=== PATIENT | female | born 1975 | race Caucasian/White ===

== ENCOUNTER 2021-08-11 09:46 | Observation (INO) ==
--- NOTE | 2021-08-11 10:08 | Emergency Department Note ---
History of Present Illness General Chief complaint: Dental/Oral Stated complaint: LEFTSIDE UPPER TOOTH PAIN Time Seen by Provider: 08/11/21 09:59 History of Present Illness Maximum Pain Intensity: 10 This is a 46-year-old female that presents to the emergency department via private vehicle with complaints of "left side upper tooth pain". The patient notes that she has been experiencing soreness to the left upper posterior dentition for some time now. She presented to her dentist on Sunday where she was seen and the patient notes that an attempt was made to remove the tooth. She notes that this was unsuccessful. Patient notes that the tooth fractured. She also notes that this injured the tooth posterior to this. She was started on clindamycin. She states that her dentist has attempted to establish follow- up with an oral surgeon however after several attempts has been unable to do so in a short period of time. It appears the soonest she can be seen is October 19. Patient was seen last night she notes at [place] emergency department. They did not have an oral surgeon on-call. She states that she was recommended to come here. She also reached out to her dentist and she notes that the dentist was in agreement to present here today as we do have an oral surgeon on-call. The patient rates her current discomfort as a 10/10. She has been compliant with the antibiotics, clindamycin. She notes vomiting secondary to the pain. She feels swelling starting out to the left cheek region just inferior to the left eye. Home Medications Medication Instructions Recorded Confirmed Type citalopram 40 mg tablet 40 mg PO QPM 06/11/19 06/11/19 History clonazepam 0.5 mg tablet 0.5 mg PO BID PRN 06/11/19 06/11/19 History dicyclomine 20 mg tablet 20 mg PO QID PRN 06/11/19 06/11/19 History famotidine 20 mg tablet 20 mg PO HS 06/11/19 06/11/19 History pantoprazole 40 mg tablet,delayed 40 mg PO QAM 06/11/19 06/11/19 History release prochlorperazine maleate 5 mg 5 mg PO Q6H PRN 06/11/19 06/11/19 History tablet promethazine 25 mg tablet 25 mg PO TID PRN 06/11/19 06/11/19 History Allergies Allergy/AdvReac Type Severity Reaction Status Date / Time Penicillins Allergy Severe THROAT Verified 06/11/19 22:12 EDEMA Sulfa (Sulfonamide Allergy Severe THROAT Verified 06/11/19 22:12 Antibiotics) EDEMA Past Med/Surg History Medical History (Updated 08/11/21 @ 13:26 by Petra Solorzano PA-C) Abscess, periapical Anxiety Depression GERD (gastroesophageal reflux disease) Nodule of parotid gland Surgical History H/O: hysterectomy Social History Smoking Status: Current every day smoker Tobacco Type: Cigarettes Feels Safe at Home: Yes Review of Systems A total of 10 systems reviewed and were otherwise negative Physical Exam Vital Signs Vital Signs - 24 hr 08/11/21 09:50 08/11/21 11:53 08/11/21 13:00 Temperature 36.4 C L Temperature Source Oral Pulse Rate 117 H Pulse Rate [Left Finger] 80 81 Pulse Rhythm Regular Pulse Rhythm [Left Finger] Regular Pulse Strength Normal Pulse Strength [Left Finger] Normal Respiratory Rate 18 16 16 Respiratory Effort / Characteristics Non-Labored Spontaneous Non-Labored Spontaneous Non-Labored Spontaneous Respiratory Depth Normal Normal Normal Respiratory Pattern Regular Blood Pressure 107/67 Blood Pressure [Right Arm] 121/77 Blood Pressure Mean 80 Blood Pressure Mean [Right Arm] 91 Blood Pressure Position Sitting Pulse Oximetry 96 99 98 Oxygen Delivery Method Room Air Room Air Room Air Sepsis Recent Fever Within 48 Hours No Sepsis New/Unexplained Change in Mental Status No Sepsis Action Taken by Nursing No Action Required VITAL SIGNS - Vital signs and nursing notes were reviewed. Tachycardic, otherwise stable. GENERAL - 46-year-old female appearing her stated age who is in no acute distre ss. Communicates well with provider and answers questions appropriately. SKIN - Without rashes. No meningeal or petechial rash. Very minor edema noted to the left premaxillary soft tissues overlying the left superior posterior dentition. HEAD - NC/AT. EYES - PERRL with EOMI bilaterally. Sclera anicteric. Palpebral conjunctiva pink and moist with no injection noted. EARS - No deformities of external structures noted on gross examination bilaterally. No pain elicited with palpation of the tragus bilaterally. External auditory canals without discharge or otorrhea. Tympanic membranes pearly palma without retraction or bulging. No fluid or purulent material visualized behind the TM. Handle of malleus, umbo, cone of light, pars tensa/flaccid all easily visualized. NOSE - Midline and without cyanosis. No epistaxis or purulent drainage noted. Septum midline without deviation or septal hematoma noted. MOUTH/OROPHARYNX - Without perioral cyanosis. Buccal mucosa pink and moist and without leukoplakia. Tooth #14 in poor repair. Tooth #13 is absent. Tongue midline with equal elevation of palate bilaterally. No tonsillar hypertrophy, erythema, or exudates noted. Poor dentition noted. No drooling, stridor, trismus, wheezing or tripoding. Normal phonation. NECK - Neck with FROM. Supple to palpation. No lymphadenopathy noted. No nuchal rigidity. LUNGS - Chest wall symmetric without accessory muscle use, intercostals retractions, or central cyanosis. Normal vesicular breath sounds CTA B/L. No wheezes, rales, or rhonchi appreciated. CARDIAC - RRR with S1/S2. No murmur, rubs, or gallops appreciated. EXTREMITIES - No clubbing or peripheral cyanosis. +5/5 strength noted in UE/LE bilaterally. NEUROLOGIC - Cranial nerves II through XII grossly intact. PSYCH - A&Ox3 and cooperates fully with examiner. Pt is very pleasant and interacts well with examiner. Course Administered Medications Discontinued Medications Acetaminophen (Acetaminophen 500 Mg Tab) 1,000 mg PO NOW STA Stop: 08/11/21 11:40 Last Admin: 08/11/21 12:14 Dose: 1,000 mg Documented by: [id number] Benzocaine (Benzocaine 20% (Orajel) 11.9 Gm Tube) 1 appln MT NOW STA Stop: 08/11/21 11:40 Last Admin: 08/11/21 12:18 Dose: 1 appln Documented by: [id number] Levofloxacin/Dextrose (Levaquin/D5w) 750 mg in 150 mls @ 100 mls/hr IV NOW STA Stop: 08/11/21 14:46 Last Admin: 08/11/21 13:33 Dose: Not Given Documented by: [id number] Ioversol (Optiray 320 100ml) 95 ml IV ONCE ONE Stop: 08/11/21 11:48 Last Admin: 08/11/21 11:47 Dose: 95 ml Documented by: [id number] Ketorolac Tromethamine (Ketorolac Tromethamine 15 Mg/Ml Vial) 10 mg IV NOW STA Stop: 08/11/21 11:40 Last Admin: 08/11/21 12:14 Dose: 10 mg Documented by: [id number] Morphine Sulfate (Morphine Sulfate 4 Mg/Ml 1 Ml Carp\\Vial) 4 mg IV NOW STA Stop: 08/11/21 10:21 Last Admin: 08/11/21 10:29 Dose: 4 mg Documented by: [id number] Ondansetron HCl (Ondansetron Inj 2 Mg/Ml 2 Ml Vial) 4 mg IV NOW STA Stop: 08/11/21 10:21 Last Admin: 08/11/21 10:29 Dose: 4 mg Documented by: [id number] Medical Decision Making Laboratory Data Result diagrams: 08/11/21 10:24 08/11/21 12:11 Lab Results 08/11/21 08/11/21 08/11/21 Range/Units 10:24 10:24 12:11 WBC 7.01 (4.8-10.8) K/uL RBC 3.87 L (4.2-5.4) M/uL Hgb 13.2 (12.0-16.0) g/dL Hct 38.4 (37-47) % MCV 99.2 (80-100) fL MCH 34.1 H (25-34) pg MCHC 34.4 (32-36) g/dL RDW Std Deviation 49.0 H (36.4-46.3) fL RDW Coeff of Tika 13.5 (11.5-14.5) % Plt Count 183 (130-400) K/uL MPV 9.8 (7.4-10.4) fL Immature Gran % (Auto) 0.3 % Neut % (Auto) 70.0 % Lymph % (Auto) 19.7 % Durham % (Auto) 6.0 % Eos % (Auto) 3.7 % Baso % (Auto) 0.3 % Neut # (Auto) 4.91 (1.4-6.5) K/uL Lymph # (Auto) 1.38 (1.2-3.4) K/uL Durham # (Auto) 0.42 (0.11-0.59) K/uL Eos # (Auto) 0.26 (0-0.5) K/uL Baso # (Auto) 0.02 (0-0.2) K/uL Immature Gran # (Auto) 0.02 (0.00-0.02) K/uL Sodium 141 (136-145) mmol/L Potassium TNP 4.1 Chloride 108 H (98-107) mmol/L Carbon Dioxide 28 (21-32) mmol/L Anion Gap 5 (3-11) BUN 15 (6-23) mg/dl Creatinine 0.90 (0.6-1.2) mg/dl Est Cr Clr Drug Dosing Not Reportable Est GFR ( Amer) 88.3 ml/min Est GFR (Non-Af Amer) 76.1 ml/min BUN/Creatinine Ratio 16.7 (10-20) Glucose 80 (70-99(Fasting)) mg/dl Calcium 9.2 (8.5-10.1) mg/dl Total Bilirubin 0.4 (0.2-1.0) mg/dl AST TNP 14 ALT 16 (7-52) U/L Alkaline Phosphatase 62 (34-104) U/L Total Protein 6.6 (6.0-8.3) gm/dl Albumin 4.0 (3.4-5.0) gm/dl Globulin 2.6 (2.5-4.0) gm/dl Albumin/Globulin Ratio 1.5 (0.9-2) SARS-CoV-2, RNA, NAAT (NEGATIVE) 08/11/21 Range/Units 12:12 WBC (4.8-10.8) K/uL RBC (4.2-5.4) M/uL Hgb (12.0-16.0) g/dL Hct (37-47) % MCV (80-100) fL MCH (25-34) pg MCHC (32-36) g/dL RDW Std Deviation (36.4-46.3) fL RDW Coeff of Tika (11.5-14.5) % Plt Count (130-400) K/uL MPV (7.4-10.4) fL Immature Gran % (Auto) % Neut % (Auto) % Lymph % (Auto) % Durham % (Auto) % Eos % (Auto) % Baso % (Auto) % Neut # (Auto) (1.4-6.5) K/uL Lymph # (Auto) (1.2-3.4) K/uL Durham # (Auto) (0.11-0.59) K/uL Eos # (Auto) (0-0.5) K/uL Baso # (Auto) (0-0.2) K/uL Immature Gran # (Auto) (0.00-0.02) K/uL Sodium (136-145) mmol/L Potassium Chloride (98-107) mmol/L Carbon Dioxide (21-32) mmol/L Anion Gap (3-11) BUN (6-23) mg/dl Creatinine (0.6-1.2) mg/dl Est Cr Clr Drug Dosing Est GFR ( Amer) ml/min Est GFR (Non-Af Amer) ml/min BUN/Creatinine Ratio (10-20) Glucose (70-99(Fasting)) mg/dl Calcium (8.5-10.1) mg/dl Total Bilirubin (0.2-1.0) mg/dl AST ALT (7-52) U/L Alkaline Phosphatase (34-104) U/L Total Protein (6.0-8.3) gm/dl Albumin (3.4-5.0) gm/dl Globulin (2.5-4.0) gm/dl Albumin/Globulin Ratio (0.9-2) SARS-CoV-2, RNA, NAAT NEGATIVE (NEGATIVE) Imaging Data Radiologist's Impression: Face CT 08/11/21 11:[address] WITH CONTRAST CLINICAL HISTORY: Left facial pain, recent dental procedure COMPARISON STUDY: No previous studies for comparison. TECHNIQUE: Facial CT was performed following intravenous injection of 95 cc of Optiray 320 IV. Sagittal and coronal reconstructions were viewed. FINDINGS: Visualized portions of the intracranial contents are unremarkable. Major vasculature of the upper neck is patent. Note is made of a 1.3 cm oval- shaped enhancing nodule within the left parotid gland. Right parotid gland and submandibular glands are normal. Epiglottis is normal. Multiple teeth are absent. There are multiple dental amalgams. Note is made of a periapical lucency/abscess associated with the left first maxillary molar. No adjacent soft tissue abscess is noted. There is mild adjacent stranding. This represents cellulitis. No facial abscess is identified on this study. There is mild lucency adjacent to a left mandibular molar. Tooth numbering is difficult given absent teeth. Mucosal thickening with a mucous retention cyst within the left maxillary sinus is noted. IMPRESSION: 1. No facial abscess identified. 2. Periapical lucency/abscess of the left first maxillary molar. No soft tissue abscess. Mild adjacent infiltration represents cellulitis. 3. Multiple absent teeth. 4. 1.3 cm enhancing nodule within the left parotid gland. Although low suspicion, this is pathologically indeterminate. Nonemergent ENT consultation is recommended. ACT 112: Negative or not required by law. Electronically signed by: Jabier Waters M.D. 08/11/2021 12:07 PM MDM Narrative Patient was seen and evaluated as above in room A02. Review was performed of nursing notes and vital signs. I did review pertinent previous visits and p atient history. After obtaining a thorough history and physical examination the above work up was performed. Patient presents to us today for evaluation of ongoing left sided dental discomfort in the setting of recent dental procedure. She is also taking antibiotics. She is tachycardic on arrival. She appears to be in pain. Options of care were discussed with the patient. IV access was established. Labs were drawn. She was given IV morphine for pain, IV Zofran for any potential nausea. No leukocytosis. No anemia. No emergent metabolic disturbance. COVID testing pending. I discussed the presentation with the on- call oral maxillofacial surgeon, Dr. Richardson. We will proceed with imaging. We will proceed with admission for the patient for IV antibiotics, pain control and surgical intervention. We discussed imaging options. CT scan was obtained of the face with IV contrast. Results as above. [facility] with then consult by Dr. Richardson for further evaluation and management. Please refer to further documentation regarding her stay. In addition to the above-mentioned medication she was also given IV Toradol, p.o. acetaminophen and Orajel to help with her dental/facial discomfort. I do believe that inpatient management is warranted noting the patient's ongoing and worsening discomfort in conjunction with her CT scan findings suggesting infection despite an adequate ongoing course of oral antibiotics. Patient amenable to plan of care. I did review the CT scan findings including incidentals. She is to follow-up for nonemergent ENT consultation. Case was discussed with the attending physician. GCS: 15 In the evaluation and treatment of this patient, the following differential diagnoses were considered: Periapical Abscess, Osteonecrosis of the Jaw, Dental Fracture, Dental Caries, Chriss's Angina, Vincent's Angina, Facial Cellulitis, among others Impression & Plan Left-sided face pain, Odontalgia, Abscess, periapical, Nodule of parotid gland, Cellulitis of face Discharge Plan Visit Data Chief Complaint: Dental/Oral Stated Complaint: LEFTSIDE UPPER TOOTH PAIN ED Provider: Jovany Ann ED Midlevel Provider: Aurelio Terrazas Discharge Problem: Left-sided face pain, Odontalgia, Abscess, periapical, Nodule of parotid gland, Cellulitis of face Patient Disposition: Admitted As Inpatient Condition: Good Forms Stand Alone Forms: [facility] [place] Prescriptions Prescriptions: No Action citalopram 40 mg tablet 40 mg PO QPM RF: 0 prochlorperazine maleate 5 mg tablet 5 mg PO Q6H PRN (Reason: Nausea) RF: 0 clonazepam 0.5 mg tablet 0.5 mg PO BID PRN (Reason: Anxiety) RF: 0 famotidine 20 mg tablet 20 mg PO HS RF: 0 dicyclomine 20 mg tablet 20 mg PO QID PRN (Reason: Abdominal Pain) RF: 0 pantoprazole 40 mg tablet,delayed release (DR/EC) 40 mg PO QAM RF: 0 promethazine 25 mg tablet 25 mg PO TID PRN (Reason: Nausea) RF: 0 Referrals Referrals: Ryan Franklin V., [Outside Practitioners] -
[2021-08-11] MEDS ORDERED: MoRPHine SULFATE 4 MG/ML 1 ML CARP\\VIAL IV STA ×2 (10:20→13:55)
[2021-08-11] MEDS ORDERED: ONDANSETRON INJ 2 MG/ML 2 ML VIAL IV STA (10:20)
[2021-08-11 10:45] LABS: Basophils # (auto) 0.02 K/uL (0-0.2); Basophils % (auto) 0.3 %; Eosinophils # (auto) 0.26 K/uL (0-0.5); Eosinophils % (auto) 3.7 %; Hematocrit (blood only) 38.4 % (37-47); Hemoglobin 13.2 g/dL (12.0-16.0); Immature Granulocytes # (auto) 0.02 K/uL (0.00-0.02); Immature Granulocytes % (auto) 0.3 %; Lymphocytes # (auto) 1.38 K/uL (1.2-3.4); Lymphocytes % (auto) 19.7 %; Mean Corpuscular Hemoglobin 34.1 pg (25-34); Mean Corpuscular Hgb Conc 34.4 g/dL (32-36); Mean Corpuscular Volume 99.2 fL (80-100); Mean Platelet Volume 9.8 fL (7.4-10.4); Monocytes # (auto) 0.42 K/uL (0.11-0.59); Neutrophils # (auto) 4.91 K/uL (1.4-6.5); Platelet Count 183 K/uL (130-400); RDW Coefficient of Variation 13.5 % (11.5-14.5); Red Blood Count 3.87 M/uL (4.2-5.4); White Blood Count 7.01 K/uL (4.8-10.8)
[2021-08-11 11:13] LABS: Alanine Aminotransferase 16 U/L (7-52); Albumin Globulin Ratio 1.5 (0.9-2); Alkaline Phosphatase 62 U/L (34-104); Anion Gap 5 (3-11); BUN Creatinine Ratio 16.7 (10-20); Bilirubin,Total 0.4 mg/dl (0.2-1.0); Blood Urea Nitrogen 15 mg/dl (6-23); Calcium 9.2 mg/dl (8.5-10.1); Carbon Dioxide 28 mmol/L (21-32); Chloride 108 mmol/L (98-107); Est GFR (African American) 88.3 ml/min; Est GFR (Non-African American) 76.1 ml/min; Globulin 2.6 gm/dl (2.5-4.0); Glucose 80 mg/dl (70-99(Fasting)); Sodium 141 mmol/L (136-145); Total Protein 6.6 gm/dl (6.0-8.3)
[2021-08-11] MEDS ORDERED: BENZOCAINE 20% (ORAJEL) 11.9 GM TUBE MT STA (11:39)
[2021-08-11] MEDS ORDERED: KETOROLAC TROMETHAMINE 15 MG/ML VIAL IV STA (11:39)
[2021-08-11] MEDS ORDERED: ACETAMINOPHEN 500 MG TAB PO STA (11:39)
[2021-08-11] MEDS ORDERED: OPTIRAY 320 100ml IV ONE (11:47)
--- NOTE | 2021-08-11 12:09 | CT Scan Report ---
FACIAL BONE CT WITH CONTRAST CLINICAL HISTORY: Left facial pain, recent dental procedure COMPARISON STUDY: No previous studies for comparison. TECHNIQUE: Facial CT was performed following intravenous injection of 95 cc of Optiray 320 IV. Sagitt al and coronal reconstructions were viewed. FINDINGS: Visualized portions of the intracranial contents are unremarkable. Major vasculature of the upper neck is patent. Note is made of a 1.3 cm oval-shaped enhancing nodule within the left parotid gland. Right parotid gland and submandibular glands are normal. Epiglottis is normal. Multiple teeth are absent. There are multiple dental amalgams. Note is made of a periapical lucency/abscess associat ed with the left first maxillary molar. No adjacent soft tissue abscess is noted. There is mild adjac ent stranding. This represents cellulitis. No facial abscess is identified on this study. There is mi ld lucency adjacent to a left mandibular molar. Tooth numbering is difficult given absent teeth. Muco tavon thickening with a mucous retention cyst within the left maxillary sinus is noted. IMPRESSION: 1. No facial abscess identified. 2. Periapical lucency/abscess of the left first maxillary molar. No soft tissue abscess. Mild adjacen t infiltration represents cellulitis. 3. Multiple absent teeth. 4. 1.3 cm enhancing nodule within the left parotid gland. Although low suspicion, this is pathologica lly indeterminate. Nonemergent ENT consultation is recommended. ACT 112: Negative or not required by law. Electronically signed by: Jabier Waters M.D. 08/11/2021 12:07 PM
--- NOTE | 2021-08-11 12:24 | History & Physical Report ---
Date of Service August 11, 2021 Assessment & Plan (1) Abscess, periapical: Plan: - Periapical lucency/abscess of the left first maxillary molar. No soft tissue abscess. Mild adjacent infiltration represents cellulitis. - Had procedure as an outpatient on 08/08 for tooth removal, however tooth broke. Has been on clindamycin since then. - We will place patient on IV clindamycin plus levofloxacin as she has a penicillin allergy, Dr. Richardson to evaluate later this afternoon. - Pain control with Tylenol, Toradol, morphine, lidocaine swish. (2) Depression: Plan: - Continue Wellbutrin 100 mg daily. (3) Anxiety: Plan: - Continue BuSpar 20 mg 3 times daily. - Continue trazodone 150 mg hour sleep, as well as mirtazapine 30 mg hour of sleep. (4) GERD (gastroesophageal reflux disease): Plan: - Continue Protonix, also prescribed scopolamine patch every 3 days for associated nausea. (5) Nodule of parotid gland: Plan: - Incidental 1.3 cm enhancing nodule within the left parotid gland. Nonemergent ENT consultation is recommended. Plan: - Obs on med/surg. - SCDs for DVT PPx. - Full code. History of Present Illness Chief Complaint: toothache Primary Care Provider: Roberto Lawrence MD Ms. Williamson is a 46-year-old female with past medical history of depression, anxiety, GERD, and chronic nausea who presents today for evaluation of left- sided face pain. One month ago, patient began to have left molar pain. At that time she saw her dentist, who prescribed her Z-Brooks. This is completed about 2 and half weeks ago. She did not achieve resolution of her symptoms, therefore this past 08/08 her dentist attempted to extract the tooth, however this was unsuccessful as the tooth fractured. She was prescribed clindamycin then, and attempts were made to set her up to see in oral surgeon promptly, however cannot be seen until October 19. Therefore, she was recommended to present to the ED for further evaluation. Patient states she has had some chills over the past day, as well as severe pain to the left side of her face that makes eating and drinking difficult, however no fevers at home, headaches, throat swelling, or difficulty breathing or managing secretions. She has not had any chest pain or palpitations, abdominal pain, nausea, vomiting outside her chronic nausea that she states is due to multiple abdominal surgeries she has had over the years. ED provider discussed case with oral surgeon, Dr. Mahendra Richardson he recommended obtaining face CT, treating with IV antibiotics and pain medications with plans to follow-up with patient later this afternoon. Face CT did reveal a periapical lucency/abscess of the left first maxillary molar with mild adjacent infiltration represents cellulitis. An incidental left parotid gland was also noted. Allergies Allergy/AdvReac Type Severity Reaction Status Date / Time Penicillins Allergy Severe THROAT Verified 08/11/21 15:09 EDEMA Sulfa (Sulfonamide Allergy Severe THROAT Verified 08/11/21 15:09 Antibiotics) EDEMA Home Medications Medication Instructions Recorded Confirmed Type famotidine 20 mg tablet 20 mg PO HS 06/11/19 08/11/21 History pantoprazole 40 mg tablet,delayed 40 mg PO QAM 06/11/19 08/11/21 History release bupropion HCl 100 mg tablet,12 hr 100 mg PO DAILY 08/11/21 08/11/21 History sustained-release (Wellbutrin SR) buspirone 10 mg tablet 20 mg PO TID 08/11/21 08/11/21 History clindamycin HCl 300 mg capsule 300 mg PO Q6 08/11/21 08/11/21 History lidocaine HCl 2 % mucosal solution 10 ml PO Q6 PRN 08/11/21 08/11/21 History (Lidocaine Viscous) mirtazapine 30 mg tablet 30 mg PO HS 08/11/21 08/11/21 History scopolamine base 1 mg over 3 days 1 patch TRANSDERMAL [id number] PRN 08/11/21 08/11/21 History transdermal patch trazodone 150 mg tablet 150 mg PO HS 08/11/21 08/11/21 History Past Med/Surg History Medical History (Updated 08/11/21 @ 18:51 by Mahendra Richardson DMD) Abscess, periapical Anxiety Depression GERD (gastroesophageal reflux disease) Nodule of parotid gland Surgical History H/O: hysterectomy Social History Smoking Status: Current every day smoker Tobacco Type: Cigarettes Cigarettes Per Day: 20; Hx Alcohol Use: No Hx Substance Use: No Preferred Language: Georgian Communication Ability: Effective 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 Required: No Beliefs That Will Affect Care: None Current Living Situation: Parent Other Information That Helps Us Care for You: No Feels Safe at Home: Yes Safety Concerns: Feels Safe At This Time Assistive Devices: None Review of Systems Review of Systems: Constitutional: Reports chills; no weakness, fatigue, myalgias, anorexia, night sweats Eyes: No diplopia, no worsening or blurred vision ENT: Left-sided face and dental pain for 1 month; normal hearing, no trouble swallowing Respiratory: No cough, sputum, dyspnea at rest or on exertion Cardiovascular: No chest pain, tightness or palpitations Abdomen: No pain, nausea, vomiting, diarrhea or constipation : Denies dysuria, hematuria, increased urgency/frequency, urinary retention Musculoskeletal: No joint pain, calf pain, swelling Neurologic: No weakness, numbness/tingling, or balance problems Psychiatric: No anxiety or depression Skin: No rash or itch Physical Exam Physical Exam: General: awake, alert, no apparent distress Head: Normocephalic, atraumatic ENT: Poor dentition in general, left molar with what appears to be an ulceration along gumline; left periauricular lymphadenopathy; no tonsillar deviation, hypertrophy, no pharyngeal exudate, mucous membranes moist; no drooling, stridor, wheezing, tripoding. PERRL, EOMI Chest: Clear to auscultation, on room air, no adventitious breath sounds Cardiac: Regular rate and rhythm, no murmur, no JVD, normal peripheral pulses, good capillary refill Abdominal: NABS x 4 quadrants, soft, nontender to palpation, no rebound, guarding or tenderness Extremities: Normal inspection, no peripheral edema or erythema, calfs nontender to palpation Psych: Normal mood and affect Neuro: AAO x 3, strength intact bilaterally and rated 5/5, no motor deficits, speech is clear, no peripheral sensory deficits Skin: no rash or erythema Results & Data Results & Data ([facility]) Vital Signs (Past 12 Hours) Vital Signs Temp Pulse Pulse Resp BP BP Pulse Ox 08/11/21 11:53 80 16 121/77 99 08/11/21 09:50 36.4 C L 117 H 18 107/67 96 Laboratory Results Abnormal lab results 08/11/21 08/11/21 Range/Units 10:24 10:24 RBC 3.87 L (4.2-5.4) M/uL MCH 34.1 H (25-34) pg RDW Std Deviation 49.0 H (36.4-46.3) fL Chloride 108 H (98-107) mmol/L Diagnostic Findings Face CT 08/11/21 11:[address] WITH CONTRAST CLINICAL HISTORY: Left facial pain, recent dental procedure COMPARISON STUDY: No previous studies for comparison. TECHNIQUE: Facial CT was performed following intravenous injection of 95 cc of Optiray 320 IV. Sagittal and coronal reconstructions were viewed. FINDINGS: Visualized portions of the intracranial contents are unremarkable. Major vasculature of the upper neck is patent. Note is made of a 1.3 cm oval- shaped enhancing nodule within the left parotid gland. Right parotid gland and submandibular glands are normal. Epiglottis is normal. Multiple teeth are absent. There are multiple dental amalgams. Note is made of a periapical lucency/abscess associated with the left first maxillary molar. No adjacent soft tissue abscess is noted. There is mild adjacent stranding. This represents cellulitis. No facial abscess is identified on this study. There is mild lucency adjacent to a left mandibular molar. Tooth numbering is difficult given absent teeth. Mucosal thickening with a mucous retention cyst within the left maxillary sinus is noted. IMPRESSION: 1. No facial abscess identified. 2. Periapical lucency/abscess of the left first maxillary molar. No soft tissue abscess. Mild adjacent infiltration represents cellulitis. 3. Multiple absent teeth. 4. 1.3 cm enhancing nodule within the left parotid gland. Although low suspicion, this is pathologically indeterminate. Nonemergent ENT consultation is recommended. ACT 112: Negative or not required by law. Electronically signed by: Jabier Waters M.D. 08/11/2021 12:07 PM Code Status & VTE Plan Code Status Full Code. Supervising Physician Co-Signing Physician Notes I personally saw and examined the patient. I verified all ulrich points and agree with Petra Solorzano PA-C with the following exceptions and/or additions: 46 year old female admission for left sided facial pain s/p attempted tooth extraction. Periacpical abscess of first maxillay molar on CT imaging in the ER. Oromaxillofacial surgery recommending admission under medicine with IV antibiotics for patient to be seen later today. O/E HS1+2, no murmurs, no cervical lymphadenopathy. Tender gingiva above left upper molar with erosion and pocket formation. Tooth #14 fractured. A/P Periapical abscess - due to penicillin allergy will treat with clindamycin and Levaquin. Consult oral & maxillofacial surgery for possible extraction tomorrow. NPO at midnight. PG Care Time/CCT Total # of Minutes Spent Total Time Spent with Patient: Total time spent is greater than 50% in coordination of care (as documented) at patient's floor/unit and/or counseling patient: Coding Level of Care Code INT OBSERVATION CARE 70M LVL 3 Diagnoses Depression F32.A Anxiety F41.9 GERD (gastroesophageal reflux disease) K21.9 Abscess, periapical K04.7 Nodule of parotid gland K11.8
[2021-08-11 12:49] LABS: Potassium 4.1 mmol/L (3.5-5.1)
[2021-08-11] MEDS ORDERED: levoFLOXacin/D5W 750 MG/150 ML BAG IV STA (13:17)
[2021-08-11] MEDS ORDERED: levoFLOXacin/D5W 750 MG/150 ML BAG IV ONE (13:19)
[2021-08-11] MEDS ORDERED: CLINDAMYCIN 600 MG in DEXTROSE 5% 50 ML IV ONE (13:30)
[2021-08-11] MEDS ORDERED: POLYETHYLENE (MIRALAX) 17 GM PACK PO PRN (15:28)
[2021-08-11] MEDS ORDERED: KETOROLAC 30 MG/ML VIAL IV PRN (15:28)
[2021-08-11] MEDS ORDERED: ONDANSETRON INJ 2 MG/ML 2 ML VIAL IV PRN (15:28)
[2021-08-11] MEDS ORDERED: MoRPHine SULFATE 2 MG/ML CARP IV PRN (15:28)
[2021-08-11] MEDS ORDERED: ACETAMINOPHEN 325 MG TAB PO PRN (15:28)
[2021-08-11] MEDS ORDERED: LIDOCAINE VISCOUS 2% 15 ML UDC PO PRN (15:28)
[2021-08-11] MEDS ORDERED: SCOPOLAMINE 1 MG TDSY TD SCH (16:00)
[2021-08-11] MEDS: CHECK SCOPOLAMINE PATCH PLACEMENT SCH ×2 (16:29→23:03)
[2021-08-11] MEDS: MoRPHine SULFATE 4 MG/ML 1 ML CARP\\VIAL IV PRN ×2 (18:08→22:25)
--- NOTE | 2021-08-11 18:53 | Oral/Maxillofacial Consult ---
Date of Consultation August 11, 2021 Assessment & Plan (1) Cellulitis of face: (2) Left-sided face pain: (3) Abscess, periapical: (4) Fractured tooth: (5) Acute facial pain: (6) Failure of attempted procedure: (7) Anxiety: (8) Depression: (9) Nodule of parotid gland: History of Present Illness Reason for Consultation: severe facial pain not improving with outpatient care Attending Physician: Gage Young MD History of Present Illness Oral Maxillofacial Surgery Exam Present Complaint: I have pain/swelling/drainage from my infected upper first molar teeth. Symptoms have been ongoing for a while at least 4-6 week Dentist treated with antibiotics about 10 days ago -- no improvement in s ymptoms=pain and inability to put pressure on the tooth Dentist tried to remove # 14 SundayAUGUST 08 - difficulty getting her numb, not able to get the tooth extraction due to pain and difficult extraction. In the attempt of extraction of # 14-- # 15 was fractured. As a result the patient was placed into more pain which she could not tolerate--went to ER at [place] was referred to [facility]. Upon arrival at [facility] ER severe pain not tolerated well, not eating, rapid HR. The decision was made to admit her for pain control and ultimately extraction of tooth/teeth. There is localized gingival swelling and a subperiosteal swelling adjacent to 14-15 area as the result of the attempt of removal on Sunday and the history of ingoing pain. Oral Exam: Finding--Fractured/carious #14, fractured and cervical decay # 15 , tender gingival tissue with deep pocket formation.# 14 and# 15 removal is clinical indicated. Swelling in the gingival area which has not responded to oral antibiotics, not able to remove tooth in dental clinically setting, difficulty getting local anesthesia affect. Very poor toleration of pain Imaging: FACIAL BONE CT WITH CONTRAST CLINICAL HISTORY: Left facial pain, recent dental procedure FINDINGS: Visualized portions of the intracranial contents are unremarkable. Major vasculature of the upper neck is patent. Note is made of a 1.3 cm oval-shaped enhancing nodule within the left parotid gland. Right parotid gland and submandibular glands are normal. Epiglottis is normal. Multiple teeth are absent. There are multiple dental amalgams. Note is made of a periapical lucency/abscess associated with the left first maxillary molar. No adjacent soft tissue abscess is noted. There is mild adjacent stranding. This represents cellulitis. No facial abscess is identified on this study. There is mild lucency adjacent to a left mandibular molar. Tooth numbering is difficult given absent teeth. Mucosal thickening with a mucous retention cyst within the left maxillary sinus is noted. IMPRESSION: 1. No facial abscess identified. 2. Periapical lucency/abscess of the left first maxillary molar. No soft tissue abscess. Mild adjacent infiltration represents cellulitis. 3. Multiple absent teeth. 4. 1.3 cm enhancing nodule within the left parotid gland. Although low suspicion, this is pathologically indeterminate. Nonemergent ENT consultation is recommended. Soft tissue: floor of the mouth, tongue, hard/soft palate, posterior pharyngeal area all with in normal limits, no pathology or abnormal findings noted. No lesions noted that require follow up or Bx. Oral Care: Overall oral care is fair Occlusion: Class I with missing teeth TMJ exam: No pop, clicking, pain, good ROM, No history of TMJ injury or dysfunction Periodontal exam: Moderate gingival tissue inflammation with evidence of periodontal pathology. Head/Neck exam: Neck is supple, FROM, Able to extend and flex neck w/o difficulty, no masses, no abnormalities, no airway issues, ? evidence of sleep apnea. Treatment Plan: To control the pain and infection removal of # 14 and # 15 is needed. Set up with general anesthesia in hospital while under this admission--- due to the ill attempt of trying to remove # 14 and injury to # 15 removal is needed WALDEMAR. I reviewed the treatment plan and consent with the patient Understanding was expressed. Time was given for questions regarding the surgery, risks and post op care. Discussed alternative to treatment--procedure as planned, Do not do surgery The following teeth are decayed and fractured and removal is indicated WALDEMAR: 14 and 15 Risks discussed: Bleeding,Pain,swelling,infection, dry socket, delayed healing, nerve injury to face,lips,tongue,chin area which could be permanent (rare). TMJ, jaw stiffness, change in bite (rare), ear pain (referred). Sinus problems like fistula or infection. Need to leave a small root fragment in place to avoid injury to nerve or sinus. Relationship of wisdom teeth to nerve/sinus and risk of jaw fracture. Home care reviewed: tooth brushing, rinsing, follow up care with Dr Richardson. diet=[id number] dental. Discussed activity level, driving/work while on Rx pain Meds. Surgery to be set WALDEMAR--planning for SURGERY SundayAUGUST 12 in OR NPO tonight Allergies Allergy/AdvReac Type Severity Reaction Status Date / Time Penicillins Allergy Severe THROAT Verified 08/11/21 15:09 EDEMA Sulfa (Sulfonamide Allergy Severe THROAT Verified 08/11/21 15:09 Antibiotics) EDEMA Home Medications Medication Instructions Recorded Confirmed Type famotidine 20 mg tablet 20 mg PO HS 06/11/19 08/11/21 History pantoprazole 40 mg tablet,delayed 40 mg PO QAM 06/11/19 08/11/21 History release bupropion HCl 100 mg tablet,12 hr 100 mg PO DAILY 08/11/21 08/11/21 History sustained-release (Wellbutrin SR) buspirone 10 mg tablet 20 mg PO TID 08/11/21 08/11/21 History clindamycin HCl 300 mg capsule 300 mg PO Q6 08/11/21 08/11/21 History lidocaine HCl 2 % mucosal solution 10 ml PO Q6 PRN 08/11/21 08/11/21 History (Lidocaine Viscous) mirtazapine 30 mg tablet 30 mg PO HS 08/11/21 08/11/21 History scopolamine base 1 mg over 3 days 1 patch TRANSDERMAL [id number] PRN 08/11/21 08/11/21 History transdermal patch trazodone 150 mg tablet 150 mg PO HS 08/11/21 08/11/21 History Patient History Medical History Abscess, periapical Anxiety Depression GERD (gastroesophageal reflux disease) Nodule of parotid gland Surgical History H/O: hysterectomy Social History Smoking Status: Current every day smoker Tobacco Type: Cigarettes Cigarettes Per Day: 20; Hx Alcohol Use: No Hx Substance Use: No Preferred Language: Serbian Communication Ability: Effective Cash Shortage Investigator Required: No Beliefs That Will Affect Care: None Current Living Situation: Parent Other Information That Helps Us Care for You: No Feels Safe at Home: Yes Safety Concerns: Feels Safe At This Time Assistive Devices: None Results & Data ([facility]) Vital Signs (Past 12 Hours) Vital Signs Temp Pulse Pulse Resp BP BP Pulse Ox 08/11/21 15:33 36.9 C 74 18 110/64 98 08/11/21 15:28 36.3 C L 68 18 93/61 L 98 08/11/21 15:02 74 17 99 08/11/21 14:09 69 16 100/62 97 08/11/21 13:00 81 16 98 08/11/21 11:53 80 16 121/77 99 08/11/21 09:50 36.4 C L 117 H 18 107/67 96 PG Care Time/CCT Total # of Minutes Spent Total Time Spent with Patient: Total time spent is greater than 50% in coordination of care (as documented) at patient's floor/unit and/or counseling patient: Coding Level of Care Code 20550 Inpt Consult Level 3 Diagnoses Cellulitis of face L03.211 Left-sided face pain R51.9 Abscess, periapical K04.7 Fractured tooth S02.5XXA Acute facial pain R51.9 Failure of attempted procedure Anxiety F41.9 Depression F32.A Nodule of parotid gland K11.8
[2021-08-11] MEDS: busPIRone 5 MG TAB PO SCH (21:16)
[2021-08-11] MEDS: traZODone HCL 50 MG TAB PO SCH (21:17)
[2021-08-11] MEDS: MIRTAZAPINE TAB 15 MG TAB PO SCH (21:17)
[2021-08-11] MEDS: CLINDAMYCIN 600 MG in DEXTROSE 5% 50 ML IV SCH (23:00)
[2021-08-12] MEDS: CLINDAMYCIN 600 MG in DEXTROSE 5% 50 ML IV SCH ×3 (05:05→20:51)
[2021-08-12] MEDS: MoRPHine SULFATE 4 MG/ML 1 ML CARP\\VIAL IV PRN ×4 (05:06→23:37)
[2021-08-12 06:19] LABS: Basophils # (auto) 0.02 K/uL (0-0.2); Basophils % (auto) 0.4 %; Eosinophils # (auto) 0.25 K/uL (0-0.5); Hematocrit (blood only) 34.9 % (37-47); Hemoglobin 11.9 g/dL (12.0-16.0); Immature Granulocytes # (auto) 0.02 K/uL (0.00-0.02); Immature Granulocytes % (auto) 0.4 %; Lymphocytes # (auto) 2.17 K/uL (1.2-3.4); Lymphocytes % (auto) 43.3 %; Mean Corpuscular Hemoglobin 33.6 pg (25-34); Mean Corpuscular Hgb Conc 34.1 g/dL (32-36); Mean Corpuscular Volume 98.6 fL (80-100); Mean Platelet Volume 9.5 fL (7.4-10.4); Monocytes # (auto) 0.39 K/uL (0.11-0.59); Monocytes % (auto) 7.8 %; Neutrophils # (auto) 2.16 K/uL (1.4-6.5); Neutrophils % (auto) 43.1 %; Platelet Count 173 K/uL (130-400); RDW Coefficient of Variation 13.5 % (11.5-14.5); RDW Standard Deviation 49.1 fL (36.4-46.3); Red Blood Count 3.54 M/uL (4.2-5.4); White Blood Count 5.01 K/uL (4.8-10.8)
[2021-08-12 06:56] LABS: BUN Creatinine Ratio 20.2 (10-20); Calcium 8.7 mg/dl (8.5-10.1); Creatinine Clr Calc Pharmacy 94.4 ml/min; Est GFR (African American) 83.7 ml/min; Est GFR (Non-African American) 72.2 ml/min
[2021-08-12] MEDS: buPROPion SR 100 MG TABCR PO SCH (08:33)
[2021-08-12] MEDS: busPIRone 5 MG TAB PO SCH ×3 (08:33→19:59)
[2021-08-12] MEDS: CHECK SCOPOLAMINE PATCH PLACEMENT SCH ×3 (08:33→23:02)
[2021-08-12] MEDS: PANTOprazole 40 MG TAB PO SCH (08:33)
[2021-08-12] MEDS ORDERED: levoFLOXacin/D5W 750 MG/150 ML BAG IV SCH (14:00)
--- NOTE | 2021-08-12 14:04 | Hospitalist Progress Note ---
Date of Service August 12, 2021 Assessment & Plan (1) Abscess, periapical: Plan: -patient had a failed outpatient attempt at teeth extraction of number 14 and 15. -Presents with worsening pain - Found to have Periapical lucency/abscess of the left first maxillary molar. No soft tissue abscess. Mild adjacent infiltration represents cellulitis. - Has been started on IV clindamycin plus levofloxacin as she has a penicillin allergy -Maxillofacial surgery plans to take her to OR - Pain control with Tylenol, Toradol, morphine, lidocaine swish. (2) Depression: Plan: - Continue Wellbutrin 100 mg daily. (3) Anxiety: Plan: - Continue BuSpar 20 mg 3 times daily. - Continue trazodone 150 mg hour sleep, as well as mirtazapine 30 mg hour of sleep. (4) GERD (gastroesophageal reflux disease): Plan: - Continue Protonix, also prescribed scopolamine patch every 3 days for associated nausea. (5) Nodule of parotid gland: Plan: - Incidental 1.3 cm enhancing nodule within the left parotid gland. Nonemergent ENT consultation is recommended. Plan: - Obs on med/surg. - SCDs for DVT PPx. - Full code. Admission and Anticipated Discharge Date Admission Date: August 11, 2021 Subjective patient seen and examined, still in some pain. awaiting surgery Review of Systems Review of Systems: All systems reviewed are negative, apart from the ones contained in the history. Physical Exam Physical Exam: The patient is awake, alert and oriented 3, well developed and well nourished, normocephalic and atraumatic, lying in bed and in no acute distress. HEENT--PERRL, EOMI, mucous membranes and oropharynx mildly dry Neck--supple. No JVD. No bruits. Thyroid normal, trachea midline, no adenopathy. Heart--normal S1 and S2. No murmurs, rubs or gallops. Lungs--clear bilaterally, no respiratory distress, no accessory muscle use. Abdomen--normal bowel sounds and soft. Mild epigastric and left sided abdominal pain Extremities--no cyanosis or clubbing. No edema. Dermatologic--normal skin turgor, normal color, no abnormal lymph nodes, no rash. Neurologic--cranial nerves II through XII grossly intact. Rheumatologic--normal range of motion. Psychiatric--normal affect. Results & Data Results & Data ([facility]) Vital Signs (Past 12 Hours) Vital Signs Temp Pulse Resp BP Pulse Ox 08/12/21 07:30 97.5 F L 72 18 93/64 L 94 PG Care Time/CCT Total # of Minutes Spent Total Time Spent with Patient: Total time spent is greater than 50% in coordination of care (as documented) at patient's floor/unit and/or counseling patient: Coding Level of Care Code 02481 Subseq Hosp Care Lvl 2 Diagnoses Abscess, periapical K04.7 Depression F32.A Anxiety F41.9 GERD (gastroesophageal reflux disease) K21.9 Nodule of parotid gland K11.8 Time Spent (min) 35
[2021-08-12] MEDS ORDERED: BUPIVACAINE/EPINEPHRINE 0.5% 1:200,000 1.8 ML CARP ONE (14:45)
[2021-08-12] MEDS ORDERED: CHLORHEXIDINE GLUCONATE 0.12% 480 ML ONE (14:46)
[2021-08-12] MEDS ORDERED: LIDOCAINE 2% 2 ML VIAL/AMP(20MG/ML) INFIL ONE ×2 (14:47→14:48)
[2021-08-12] MEDS ORDERED: PROPOFOL IV EMULSION 10 MG/ML 20 ML VIAL IV ONE (14:47)
[2021-08-12] MEDS ORDERED: ONDANSETRON INJ 2 MG/ML 2 ML VIAL ONE (14:47)
[2021-08-12] MEDS ORDERED: DEXAMETHASONE SOD INJ 4 MG/ML VIAL ONE (14:47)
[2021-08-12] MEDS ORDERED: ROCURONIUM BROMIDE 10 MG/ML 5 ML VIAL IV ONE (14:48)
[2021-08-12] MEDS ORDERED: fentaNYL citrate 100 MCG/2 ML VIAL ONE ×2 (14:48→16:44)
[2021-08-12] MEDS ORDERED: MIDAZOLAM HCL 1 MG/ML 2ML VIAL ONE (14:48)
--- NOTE | 2021-08-12 14:49 | Anesthesiology Consultation ---
Date of Service August 12, 2021 Assessment & Plan (1) Encounter for pre-operative examination: Chart Review Chart Review: Acceptable Risk for Surgery History Surgery Operation Date: 08/12/21 07:00 Proposed Procedures p Incision and Drainage, Extraction Teeth #14 and 15 - Mahendra Richardson, [place] Height/Weight Height: 5 ft 10 in Weight: 99.4 kg Allergies Allergy/AdvReac Type Severity Reaction Status Date / Time Penicillins Allergy Severe THROAT Verified 08/11/21 15:09 EDEMA Sulfa (Sulfonamide Allergy Severe THROAT Verified 08/11/21 15:09 Antibiotics) EDEMA Medications Home Medications Medication Instructions Recorded Confirmed Last Taken famotidine 20 mg tablet 20 mg PO HS 06/11/19 08/11/21 08/10/21 pantoprazole 40 mg tablet,delayed 40 mg PO QAM 06/11/19 08/11/21 08/10/21 release bupropion HCl 100 mg tablet,12 hr 100 mg PO DAILY 08/11/21 08/11/21 08/10/21 sustained-release (Wellbutrin SR) buspirone 10 mg tablet 20 mg PO TID 08/11/21 08/11/21 08/10/21 clindamycin HCl 300 mg capsule 300 mg PO Q6 08/11/21 08/11/21 08/10/21 lidocaine HCl 2 % mucosal solution 10 ml PO Q6 PRN 08/11/21 08/11/21 08/10/21 (Lidocaine Viscous) mirtazapine 30 mg tablet 30 mg PO HS 08/11/21 08/11/21 08/10/21 scopolamine base 1 mg over 3 days 1 patch TRANSDERMAL [id number] PRN 08/11/21 08/11/21 08/10/21 transdermal patch trazodone 150 mg tablet 150 mg PO HS 08/11/21 08/11/21 08/10/21 Active Medications Generic Name Dose Route Start Last Admin Trade Name Freq PRN Reason Stop Dose Admin Bupropion HCl 100 mg 08/12/21 09:00 08/12/21 08:33 Bupropion Sr 100 Mg Tabcr PO 09/11/21 08:59 100 mg DAILY FARHAN Administration Buspirone HCl 20 mg 08/11/21 21:00 08/12/21 13:12 Buspirone 5 Mg Tab PO 09/10/21 20:59 20 mg TID FARHAN Administration Levofloxacin/Dextrose 750 mg in 150 mls @ 100 mls/hr 08/12/21 14:00 08/12/21 14:47 Levaquin/D5w IV 08/22/21 13:59 Infused Q24H FARHAN Titration Clindamycin Phosphate 600 mg/ 54 mls @ 100 mls/hr 08/11/21 22:00 08/12/21 05:48 Dextrose IV 08/21/21 21:59 Infused Q8H FARHAN Infusion Mirtazapine 30 mg 08/11/21 21:00 08/11/21 21:17 Mirtazapine Tab 15 Mg Tab PO 09/10/21 20:59 30 mg HS FARHAN Administration Miscellaneous 1 ea 08/11/21 16:00 08/12/21 08:33 Check Scopolamine Patch Placement N/A 09/10/21 15:59 1 ea QS FARHAN Administration Miscellaneous 1 ea 08/11/21 15:59 08/11/21 16:23 Remove Transderm-Scop Patch N/A 09/10/21 15:58 1 ea Q72H FARHAN Administration Morphine Sulfate 4 mg 08/11/21 15:28 08/12/21 12:18 Morphine Sulfate 4 Mg/Ml 1 Ml Carp\Vial IV 08/25/21 15:27 4 mg Q3H PRN Administration Pain (6,7,8,9,10) Ondansetron HCl 4 mg 08/11/21 15:28 08/12/21 12:18 Ondansetron Inj 2 Mg/Ml 2 Ml Vial IV 09/10/21 15:27 4 mg Q6H PRN Administration Nausea Pantoprazole Sodium 40 mg 08/12/21 09:00 08/12/21 08:33 Pantoprazole 40 Mg Tab PO 09/11/21 08:59 40 mg QAM FARHAN Administration Scopolamine 1 mg 08/11/21 16:00 08/11/21 16:23 Scopolamine 1 Mg Tdsy TD 09/10/21 15:59 1 mg Q72H FARHAN Administration Trazodone HCl 150 mg 08/11/21 21:00 08/11/21 21:17 Trazodone Hcl 50 Mg Tab PO 09/10/21 20:59 150 mg HS FARHAN Administration NPO Date Last Intake of Fluids: 08/11/21 Time Last Intake of Fluids: 23:59 Date Last Intake of Solids: 08/11/21 Time Last Intake of Solids: 23:59 Past Medical History Medical History Abscess, periapical Anxiety Depression GERD (gastroesophageal reflux disease) Nodule of parotid gland Past Surgical History Surgical History H/O: hysterectomy Social History Smoking Status: Current every day smoker tobacco type: cigarettes Smoking cigarettes per day: 20 Hx Alcohol Use: No Hx Substance Use: No Physical Exam Vital Signs Last Vital Signs Temp 36.4 C L 08/12/21 07:30 Pulse 72 08/12/21 07:30 Resp 18 08/12/21 07:30 BP 93/64 L 08/12/21 07:30 Pulse Ox 94 08/12/21 07:30 Testing Laboratory Results 08/12/21 05:58 08/12/21 05:58
[2021-08-12] MEDS ORDERED: ONDANSETRON INJ 2 MG/ML 2 ML VIAL IV PRN ×2 (15:09→16:46)
[2021-08-12] MEDS ORDERED: PROMETHAZINE HCL 12.5 MG in SODIUM CHLORIDE 0.9% 50 ML IV PRN (15:09)
[2021-08-12] MEDS ORDERED: ATROPINE SULFATE 0.1 MG/ML 10ML SYR IV PRN ×2 (15:09→16:47)
[2021-08-12] MEDS ORDERED: fentaNYL citrate 100 MCG/2 ML VIAL IV PRN (15:09)
[2021-08-12] MEDS ORDERED: KETOROLAC 30 MG/ML VIAL IV PRN ×2 (15:09→16:47)
--- NOTE | 2021-08-12 15:20 | History & Physical Bridge Note ---
Date of Service August 12, 2021 History & Physical Bridge Note I have examined the patient, reviewed the History & Physical and in the interval since the performance of the History & Physical I have noted the following changes of clinical significance: no changes noted OK for surgery to drain the subperiosteal swelling and extraction of # 14 and # 15 Pain is still intense - patient has a very low pain tolerance This could be an issue post extraction.
[2021-08-12] MEDS ORDERED: diphenhydrAMINE 50 MG/ML VIAL ONE (15:43)
[2021-08-12] MEDS ORDERED: NEOSTIGMINE METHYLSULFATE 1 MG/ML 10ML VIAL ONE (15:49)
[2021-08-12] MEDS ORDERED: GLYCOPYRROLATE 0.2 MG/ML VIAL ONE ×2 (15:49)
[2021-08-12] MEDS ORDERED: KETOROLAC 30 MG/ML VIAL ONE (15:58)
--- NOTE | 2021-08-12 16:37 | Operative Report ---
PG Post Operative Report Pre & Post Diagnosis Operation Date: 08/12/21 07:00 Pre-Op Diagnosis: MOLAR ABSCESS upper left side with associated swelling/infection Post-Op Diagnosis: MOLAR ABSCESS upper left side with associated swelling/infection I identified the patient and participated in the time-out.: Yes Procedure Operation Date: 08/12/21 07:00 Actual Procedures p Incision and Drainage, Extraction Teeth #14 and #15(Not Applicable) - Mahendra Richardson, [place] Surgeon Mahendra Richardson, [place] [employer] none Estimated Blood Loss 5 Findings Consistent with Post-Op Diagnosis left facial infection/swelling with carious # 14 and# 15 Specimens none Drains none Anesthesia Type General Complications none Indications infection not responding to out patient therapy Description of Procedure Coding I&D K12.2 I&D abscess mouth CPT 35639 Surgical Extraction # 14, # 15 D7210 x 2 Pre-op= MOLAR ABSCESS # 14 and # 15 upper left side with associated swelling/infection I&D K12.2 I&D abscess mouth CPT 35423 Surgical Extraction # 14, # 15 D7210 x 2 Once cleared for surgery general anesthesia was achieved, the eyes were protected by the anesthesia dept criteria.. A time out was take for patient ID, antibiotics, equipment and position verification once all agreed the procedure began. Local anesthesia was given into each area using Marcaine with a vasoconstrictor ( 1.8 ml per site). A throat pack was placed after the oral cavity was irrigated with saline. Once a surgical level of anesthesia was obtained and the local anesthesia was given time for the blocks the surgery was started. I turned my attention to the upper wisdom teeth first. Problem: Pain,swelling located--upper left side- Finding: There is a carious, fractured and infected tooth at site#:14,15 Plan: Surgical removal of the following tooth/teeth:14,15 Procedure report: After a complete H&P/ vital signs and oral exam was completed the patient was ready for the surgical procedure. Informed consent was reviewed and the consent form was signed. I gave them time to discuss any questions and if I explained the surgery that I will be performing to their understanding. The patient was positioned and light adjusted, Peridex mouth rinse was used and a final time out was taken to review the correct procedure, once agreed the local anesthesia was given in the standard fashion for the area of surgery. Local Anesthesia: Using 1.8 cc Xylocaine 2% with 1/100,000 epi as a block and with epi as an infiltration, profound anesthesia was obtained within 5-10 minutes. Surgical Note: Upper teeth # 14 and 15 An Incision was made over the tuberosity and carried to the distal of # 11. Now using a periosteal elevator the full thickness flap was reflected, bone removed with a rongeur, the tooth was visualized, it was close to the sinus. The bone was very thick/dense. The drill was used to split the roots and then each root was removed with an 81 elevator. Bony margins were trimmed, smoothed. Once removed the roots were inspected and the socket was curetted. p Incision and Drainage Subperiosteal Abscess and swelling of the palate upper left side. Once cleared for surgery general anesthesia was achieved, the eyes were protected by the anesthesia dept criteria. A time out was take for patient ID, antibiotics, equipment and position verification once all agreed the procedure began. Incision and Drainage Using a 15 blade an incision was made in the periosteal tissue of the large mucobuccal flap. Once the incision was made a lot of pus extruded from the site. A curved hemostat was carefully placed into the infected space along the lateral side of the upper jaw and into the infraorbital space. Some further drainage was now allowed to escape. I palpated the check, palate, infraorbital and parotid gland area and no further drainage was expressed. The area was irrigated with at least 100 ml of NS solution. Now that the 2 teeth were removed and the I&D completed I closed the site with a 2-0 chromic suture. Post Op instructions: At this time I inspected the site: bleeding was controlled, instructions given by nursing staff (diet, oral care, use of gauze, follow up, pain management, activity, no driving if narcotics were Rx.) Discharge: The patient tolerated the local/extraction procedure extremely well Patient was discharged from office. When all the teeth were removed I inspected the sites to insure all bleeding was controlled. I removed the throat pack and suctioned the throat. Bilateral gauze pressure dressings were placed. All instrument and sponge count was correct. the patient was allowed to awake from the anesthesia. Once full awake the anesthesia tube was removed and the patient was taken to the recovery room with all vital sign stable. The patient tolerated the surgery very well. I will follow the patient in my office, Rx and instructions will be given upon discharge. Oral antibiotics, pain meds, Peridex Follow up will be arranged Surgeon: Mahendra Richardson [facility] Oral Maxillofacial Surgery [facility] I attest to the content of the Intraoperative Record and any orders documented therein. Any exceptions are noted below.
[2021-08-12] MEDS: fentaNYL citrate 100 MCG/2 ML VIAL IV PRN ×4 (16:45→17:00)
--- NOTE | 2021-08-12 16:52 | Anesthesiology Progress Note ---
Date of Service August 12, 2021 Anesthesia Post Procedure Vital Signs Vital Signs: Temp Pulse Resp BP Pulse Ox Pulse Ox 08/12/21 15:08 36.8 C 68 20 99/68 L 97 08/12/21 07:30 36.4 C L 72 18 93/64 L 94 08/11/21 22:15 36.4 C L 65 20 96/67 L 98 08/11/21 21:16 65 L Pain Intensity Left Mouth: Pain Intensity: 10 Transfer of Care Handoff Completed per policy Notes Mental Status: alert / awake / arousable Patient Amnestic to Procedure: Yes Nausea / Vomiting: adequately controlled Pain: adequately controlled Airway Patency, RR, SpO2: stable & adequate BP & HR: stable & adequate Hydration State: stable & adequate Anesthetic Complications: no major complications apparent
[2021-08-12] MEDS ORDERED: HYDROmorphone INJ 1 MG/ML SYRINGE ONE (17:08)
[2021-08-12] MEDS: HYDROmorphone INJ 0.5 MG/0.5 ML SYR IV PRN ×2 (17:10→17:15)
[2021-08-12] MEDS: traZODone HCL 50 MG TAB PO SCH (19:59)
[2021-08-12] MEDS: MIRTAZAPINE TAB 15 MG TAB PO SCH (19:59)
[2021-08-13] MEDS: CLINDAMYCIN 600 MG in DEXTROSE 5% 50 ML IV SCH (05:56)
[2021-08-13] MEDS: buPROPion SR 100 MG TABCR PO SCH (07:47)
[2021-08-13] MEDS: CHECK SCOPOLAMINE PATCH PLACEMENT SCH (07:47)
[2021-08-13] MEDS: PANTOprazole 40 MG TAB PO SCH (07:47)
[2021-08-13] MEDS: busPIRone 5 MG TAB PO SCH (07:47)
[2021-08-13 08:42] LABS: Creatinine Clr Calc Pharmacy 112.4 ml/min; Est GFR (African American) 103.3 ml/min; Est GFR (Non-African American) 89.1 ml/min
[2021-08-13] MEDS ORDERED: oxyCODONE/ACETAMINOPHEN 5mg/325mg TAB PO PRN (08:57)
--- NOTE | 2021-08-13 09:22 | Oral/Maxillofacial Progress Nt ---
Date of Service August 13, 2021 Assessment & Plan Admission and Anticipated Discharge Date Admission Date: August 11, 2021 Subjective Post Op infection evaluation at 24 hrs OK for D/C from OMS oint of view The infected area is now healing very well. Swelling is gone and the tissue is healing well No drainage is noted. Infection has responded very well to the antibiotics and the I and D. Extraction sites look good A lot less acute pain I requested that the patient continue with massage, heat and wound care. At this time the area is well healed and responded well to treatment and she may be discharged I will see her in my office in 10-14 days Results & Data ([facility]) Vital Signs (Past 12 Hours) Vital Signs Temp Pulse Pulse Resp BP Pulse Ox 08/13/21 07:16 36.5 C 76 16 129/70 94 08/13/21 03:23 36.7 C 69 16 105/70 96 08/12/21 22:50 36.5 C 77 16 98/60 L 96 08/12/21 21:25 37 C 84 18 100/62 97 PG Care Time/CCT Total # of Minutes Spent Total Time Spent with Patient: Total time spent is greater than 50% in coordination of care (as documented) at patient's floor/unit and/or counseling patient: Coding Level of Care Code None
[2021-08-13 13:33] LABS: Hematocrit (blood only) 38.1 % (37-47); Hemoglobin 12.9 g/dL (12.0-16.0); Immature Granulocytes # (auto) 0.04 K/uL (0.00-0.02); Immature Granulocytes % (auto) 0.4 %; Lymphocytes # (auto) 1.11 K/uL (1.2-3.4); Lymphocytes % (auto) 10.4 %; Mean Corpuscular Hemoglobin 32.9 pg (25-34); Mean Corpuscular Hgb Conc 33.9 g/dL (32-36); Mean Corpuscular Volume 97.2 fL (80-100); Mean Platelet Volume 10.2 fL (7.4-10.4); Monocytes # (auto) 0.34 K/uL (0.11-0.59); Monocytes % (auto) 3.2 %; Neutrophils # (auto) 9.16 K/uL (1.4-6.5); Platelet Count 211 K/uL (130-400); RDW Coefficient of Variation 13.6 % (11.5-14.5); RDW Standard Deviation 48.2 fL (36.4-46.3); Red Blood Count 3.92 M/uL (4.2-5.4); White Blood Count 10.65 K/uL (4.8-10.8)
[2021-08-13 13:48] LABS: BUN Creatinine Ratio 24.1 (10-20); Est GFR (African American) 97.3 ml/min; Potassium 4.3 mmol/L (3.5-5.1)
--- NOTE | 2021-08-13 15:18 | Discharge Summary ---
Date of Service August 13, 2021 Admission HPI Per Admitting Provider Ms. Williamson is a 46-year-old female with past medical history of depression, anxiety, GERD, and chronic nausea who presents today for evaluation of left- sided face pain. One month ago, patient began to have left molar pain. At that time she saw her dentist, who prescribed her Z-Brooks. This is completed about 2 and half weeks ago. She did not achieve resolution of her symptoms, therefore this past Sunday, 08/08 her dentist attempted to extract the tooth, however this was unsuccessful as the tooth fractured. She was prescribed clindamycin then, and attempts were made to set her up to see in oral surgeon promptly, however cannot be seen until October 19. Therefore, she was recommended to present to the ED for further evaluation. Patient states she has had some chills over the past day, as well as severe pain to the left side of her face that makes eating and drinking difficult, however no fevers at home, headaches, throat swelling, or difficulty breathing or managing secretions. She has not had any chest pain or palpitations, abdominal pain, nausea, vomiting outside her chronic nausea that she states is due to multiple abdominal surgeries she has had over the years. ED provider discussed case with oral surgeon, Dr. Mahendra Richardson he recommended obtaining face CT, treating with IV antibiotics and pain medications with plans to follow-up with patient later this afternoon. Face CT did reveal a periapical lucency/abscess of the left first maxillary molar with mild adjacent infiltration represents cellulitis. An incidental left parotid gland was also noted. Admission Exam Per Admitting Provider General: awake, alert, no apparent distress Head: Normocephalic, atraumatic ENT: Poor dentition in general, left molar with what appears to be an ulceration along gumline; left periauricular lymphadenopathy; no tonsillar deviation, hypertrophy, no pharyngeal exudate, mucous membranes moist; no drooling, stridor, wheezing, tripoding. PERRL, EOMI Chest: Clear to auscultation, on room air, no adventitious breath sounds Cardiac: Regular rate and rhythm, no murmur, no JVD, normal peripheral pulses, good capillary refill Abdominal: NABS x 4 quadrants, soft, nontender to palpation, no rebound, guarding or tenderness Extremities: Normal inspection, no peripheral edema or erythema, calfs nontender to palpation Psych: Normal mood and affect Neuro: AAO x 3, strength intact bilaterally and rated 5/5, no motor deficits, speech is clear, no peripheral sensory deficits Skin: no rash or erythema Principal Diagnosis Periapical Abscess Left parotid gland nodule Discharge Exam Constitutional: Vitals are stable Respiratory: Lung sounds were generally clear bilaterally. Cardiovascular: Heart was RRR without significant murmur, gallops or rubs. Musculoskeletal System: The musculoskeletal system seemed concordant with age. Skin: The skin was negative for jaundice. Extremities: Negative for edema or erythema Discharge Data Allergies Allergy/AdvReac Type Severity Reaction Status Date / Time Penicillins Allergy Severe THROAT Verified 08/11/21 15:09 EDEMA Sulfa (Sulfonamide Allergy Severe THROAT Verified 08/11/21 15:09 Antibiotics) EDEMA Consultations 08/11/21 12:22 ED Decision to Admit Stat 08/11/21 15:28 Consult Oromaxillofacial Surgery Routine Procedures Performed Operation Date: 08/12/21 07:00 Actual Procedures p Incision and Drainage, Extraction Teeth #14 and #15(Not Applicable) - Mahendra Richardson, DMD Ordered Studies 08/11/21 11:34 CT facial bones w con Stat Hospital Course (1) Abscess, periapical: CT face 08/11 with periapical lucency/abscess of left first maxillary molar, mild adjacent infiltration represent cellulitis. She failed outpatient teeth extraction, referred for admission. Received IV Levaquin/Clindamycin as inpatient. S/p I&D, extraction of teeth 14 and 15. Will complete Clindamycin course at home. Follow up with Dr. Mahendra Richardson as an outpatient. (2) Depression: Continued Wellbutrin 100 mg daily. (3) Anxiety: Continued BuSpar 20 mg 3 times daily. Continued trazodone 150 mg hour sleep, as well as mirtazapine 30 mg hour of sleep. (4) GERD (gastroesophageal reflux disease): Continued Protonix, also prescribed scopolamine patch every 3 days for associated nausea. (5) Nodule of parotid gland: Incidental 1.3 cm enhancing nodule within the left parotid gland. Referred to Dr. Grijalva for follow up evaluation. Discharged to home on 08/13/21. Total Time Total Time Spent Total Time Spent (In Minutes): >30 minutes Discharge Plan Discharge Items Patient Disposition: Home - Self-Care Reason For Visit: MOLAR ABSCESS Discharge Diagnosis: s/p infection with severe pain upper left face Condition on Discharge: Good Activity: Resume your previous activity Lifting: Gradually increase as tolerated Bathing: No limitations Exercise/Sports: Gradually increase as tolerated Driving/Machine Use: Resume 1 day after discharge Non-emergency contact: Surgeon Call non-emergency contact if: you have any medication questions, your symptoms worsen, your pain is not controlled, your pain is worsening, your pain is unusual for you, your pain is concerning for you, you have a fever, your temperature is above 101.5, your wound has increased drainage and your wound pain has increased Follow-up/Referrals: Tao Grijalva MD [Physician] - (Parotid gland nodule. ) Mahendra Richardson DMD [Physician] - 09/01/21 2:15 pm Roberto Lawrence MD [Primary Care Provider] - Diet: Full liquid and Clear liquid Diet Texture: Easy to Chew Addtl Attending Provider Instructions: ADDITIONAL ACTIVITY RECOMMENDATIONS: * Guy teeth after every meal. It is very important to keep your mouth clean to prevent infection. * Starting tonight rinse with the Peridex as directed then 2 x a day * it is very important to keep well hydrated, this prevents fever and possible dry socket pain SPECIAL CARE INSTRUCTIONS: *It is not uncommon that between day 2-4 that your swelling will be at its worst this is very normal, do not be alarmed. * Keep ice on the side of your face for the next 24 to 36 hours. This will help keep the swelling down. * After 36 hours, apply heat (hot water bottle or heating pad) for the next two days, as often as possible. * Tomorrow start rinsing your mouth with 1/2 teaspoon salt in 8 ounces warm water. This rinse should be used every 4-6 hours. * You may experience slight nausea. To prevent this, never take your medication on an empty stomach. If nauseated, take small sips of cookie demario until you feel better; then you may start on applesauce and toast. * Some swelling is common. It should gradually decrease within 4-5 days. * A certain amount of bleeding is to be expected. It is often possible to control mild oozing by placing folded gauze over the area and biting down for 30 minutes. If you are unable to control excessive bleeding, call Dr Richardson at [phone] * You may experience some discomfort for a few days. If pain or swelling increases, Call Dr Richardson * Return to the office for a follow up check up on: SundaySEPTEMBER 01 at 2:15 * office address--[address] phone # [phone] You have a 1.3 cm enhancing nodule within the left parotid gland; we recommend ENT follow up with Dr. Grijalva for evaluation. An appointment will be scheduled with this provider. Pending Studies at Discharge: No Stand-Alone Forms: My [facility], Smoking Cessation Medications and DC Order Prescriptions: Continued clindamycin HCl 300 mg capsule 300 mg PO TID 7 Days Qty: 21 RF: 0 hydrocodone-acetaminophen 5-325 mg tablet 1 tab PO Q4H PRN (Reason: pain) Qty: 14 RF: 0 famotidine 20 mg tablet 20 mg PO HS RF: 0 pantoprazole 40 mg tablet,delayed release (DR/EC) 40 mg PO QAM RF: 0 clindamycin HCl 300 mg capsule 300 mg PO Q6 RF: 0 lidocaine HCl [Lidocaine Viscous] 2 % solution 10 ml PO Q6 PRN (Reason: Pain) RF: 0 bupropion HCl [Wellbutrin SR] 100 mg tablet sustained-release 12 hr 100 mg PO DAILY RF: 0 mirtazapine 30 mg tablet 30 mg PO HS RF: 0 buspirone 10 mg tablet 20 mg PO TID RF: 0 trazodone 150 mg tablet 150 mg PO HS RF: 0 scopolamine base 1 mg over 3 days patch 3 day 1 patch transdermal [id number] PRN (Reason: Nausea) RF: 0 Discharge Orders: Discharge Order (Routine); Ordered 08/13/21 Ordered By: Ariella Fischer/Other Patient Handouts: Hydrocodone/Acetaminophen Oral Tablet 5 mg/325 mg Admission Data Admit Date/Time: 08/11/21 12:27 Attending Provider: Carlos A Sanchez Admit Provider: Gage Young Primary Care Provider: Roberto Lawrence Other Providers: Gage Young ; Mahendra Richardson Other Interventions: Discharge Summary Assessment (RN) Last Done: 08/13/21 10:53 Supervising Physician Co-Signing Physician Notes Attending Attestation & Discharge Note: Pt seen/examined, chart reviewed, care plan d/w GREG Rios. I agree w/ the ulrich components of her documentation. 46yo female who presented with a dental abscess (left first maxillary molar). Seen by Dr Richardson, oral surgery, who performed I/D of the abscess and extraction of teeth #14 and #15. Received IV clindamycin & pain meds while here. At discharge will complete a course of oral clindamycin and will need to f/u with Dr Richardson as an outpatient. On facial CT a parotid gland nodule was seen in the LEFT parotid gland - will need [facility] ENT f/u for this. Discharge exam: gen - NAD mouth - left maxillary molars - sutures intact, mild swelling of gingiva and buccal mucosa in this region face - mild L facial swelling heart - RRR, s1 s2, no murmur lungs - CTA b/l abd - soft ext - no edema Gage Mccoy MD Coding Level of Care Code D/C DAY MANAGEMENT >30 MINS Diagnoses Abscess, periapical K04.7 Depression F32.A Anxiety F41.9 GERD (gastroesophageal reflux disease) K21.9 Nodule of parotid gland K11.8
== END 2021-08-13 11:31 | disposition home or self-care (01) ==
LOC: 3E 09:46 → ED 09:46 → SUATTDRO 12:27 → 3E 15:02